=== PATIENT | female | born 2000 | race Caucasian/White ===

== ENCOUNTER 2021-12-04 14:04 | Emergency (ER) | payer MEDICAID, OTHER ==
[~2021-12-04] VITALS: Ht 170.2 cm; Wt 59.0 kg
--- NOTE | 2021-12-04 14:09 | NUR ---
PT IS IN ROOM #2A. DR BAUER EVALUATED THE PT.
[2021-12-04] MEDS ORDERED: ONDANSETRON 4 MG/2 ML VIAL IV ONE (15:15)
[2021-12-04 15:19] LABS: HEMATOCRIT 47.7 % (31.2-41.9); MEAN CORPUSCULAR HEMOGLOBIN 29.8 uug (24.7-32.8); MEAN CORPUSCULAR VOLUME 89.7 fL (75.5-95.3); PLATELET COUNT (AUTO) 381 K/uL (179-408)
[2021-12-04] MEDS ORDERED: ONDANSETRON 4 MG/2 ML VIAL ONE (15:27)
[2021-12-04] MEDS ORDERED: LORAZEPAM 2 MG/1 ML VIAL IV ONE (15:30)
[2021-12-04] MEDS ORDERED: LORAZEPAM 2 MG/1 ML VIAL ONE (15:32)
[2021-12-04 15:33] LABS: ALANINE AMINOTRANSFERASE 20 U/L (14-59); ALKALINE PHOSPHATASE 58 U/L (50-136); ASPARTATE AMINOTRANSFERASE 19 U/L (15-37); BILIRUBIN,DIRECT 0.2 mg/dL (0.0-0.2); BILIRUBIN,TOTAL 0.9 mg/dL (0.2-1.0); CARBON DIOXIDE 23 mmol/L (21-32); CHLORIDE 103 mmol/L (98-107); GLUCOSE 92 mg/dL (74-106); POTASSIUM 4.1 mmol/L (3.5-5.1); UREA NITROGEN, BLOOD 5 mg/dL (7-18)
[2021-12-04 15:34] LABS: ETHANOL < 3 MG/DL (0-0)
[2021-12-04 15:37] LABS: ACETAMINOPHEN < 2.0 ug/mL (10-30)
[2021-12-04] MEDS ORDERED: IV NORMAL SALINE 1000 ML BAG IV ONE (15:45)
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
[2021-12-04 20:30] LABS: *BILIRUBIN,URIN NEGATIVE (NEGATIVE); *CLARITY,URINE CLEAR (CLEAR); *COLOR,URINE YELLOW (YELLOW); *KETONES,URINE 1+ (NEGATIVE); LEUKOCYTE ESTERASE ,URINE NEGATIVE (NEGATIVE); NITRITE, URINE NEGATIVE (NEGATIVE); UGLUCOSE NEGATIVE (NEGATIVE)
[2021-12-04 20:31] LABS: *BLOOD, URINE TRACE (NEGATIVE)
[2021-12-04 20:40] LABS: BACTERIA,URINE NONE SEEN /HPF (NONE SEEN); RBC,URINE 0-3 /HPF (0-3); SQUAMOUS EPITHELIAL CELL,UR NONE SEEN /HPF (NONE SEEN); WBC,URINE NONE SEEN /HPF (0-3)
[2021-12-04 20:46] LABS: *AMPHETAMINE, URINE NEGATIVE (NEGATIVE); *CANNABINOID, URINE NEGATIVE (NEGATIVE); *COCCAINE, URINE POSITIVE (NEGATIVE); *OPIATE, URINE NEGATIVE (NEGATIVE); *PHENCYCLIDINE SCREEN,URINE NEGATIVE (NEGATIVE)
[2021-12-05] MEDS ORDERED: SERTRALINE HCL 50 MG TABLET PO ONE (01:00)
[2021-12-05] MEDS ORDERED: LAMOTRIGINE 100 MG TABLET PO ONE (01:00)
--- NOTE | 2021-12-05 01:30 | NUR ---
Gave pt DC instructions and pt confirmed understanding of aftercare. VSS, PE WNL. steady gait. Denies any pain, n/v, dizziness, or sob. no s/sxof distress present.
[2021-12-05 02:30] VITALS: BP 116/79
== END 2021-12-05 01:30 | disposition home or self-care (01) ==
LOC: ER 14:04
DX: S00.83XA Contusion of other part of head, initial encounter (principal); F29 Unspecified psychosis not due to a substance or known physiological condition; F30.9 Manic episode, unspecified; W18.39XA Other fall on same level, initial encounter; Y93.89 Activity, other specified; Y92.89 Other specified places as the place of occurrence of the external cause; Y99.8 Other external cause status
CPT/HCPCS: 36415; 70450; 80048; 80076; 80299; 80307; 80320; 81001; 82962; 84702; 85025; 93005; 96361; 96374; 96375; 99285; J2060; J2405; A4663; G0480; J7030